=== PATIENT | male | born 1955 | race Caucasian/White ===

== ENCOUNTER 2019-03-30 13:16 | Emergency (ER) | payer OTHER ==
[~2019-03-30] VITALS: Ht 188 cm; Wt 90.7 kg
--- NOTE | 2019-03-30 13:20 | NUR ---
[id number], WITNESSED SYNCOPE AT HOME. ABDOMINAL PAIN S/P KIDNEY PROCEDURE LAST WEEK. +HEMATURIA NOTED, TO ER BED 1, HOOKED TO MONITOR, CHANGED TO HOSP GOWN, WARM BLAKET PROVIDED, PATIENT AOx4 , BREATHING EVEN AND UNLABORED. AWAITING MD SCRUGGS.
--- NOTE | 2019-03-30 13:30 | NUR ---
DR MORALES AT BEDSIDE
--- NOTE | 2019-03-30 13:42 | NUR ---
CALLED [facility]
[2019-03-30 13:51] LABS: BASOPHILS # (AUTO) 0.1 /CMM (0.0-0.2); BASOPHILS % (AUTO) 1.1 % (0.0-2.0); EOSINOPHILS % (AUTO) 3.8 % (0.0-6.0); HEMATOCRIT 38 % (39-51); HEMOGLOBIN 13.4 g/dL (13.5-17.5); LYMPHOCYTES # (AUTO) 1.8 /CMM (0.8-4.8); LYMPHOCYTES % (AUTO) 17.8 % (20.0-44.0); MEAN CORPUSCULAR HGB CONC 35 g/dl (31.0-36.0); MEAN CORPUSCULAR VOLUME 94 fL (80-96); MONOCYTES # (AUTO) 0.6 /CMM (0.1-1.30); MONOCYTES % (AUTO) 6.3 % (2.0-12.0); NEUTROPHILS # (AUTO) 7.2 /CMM (1.8-8.9); PLATELET COUNT (AUTO) 239 /CMM (150-450); RED BLOOD CELL COUNT(AUTO) 4.07 MIL/uL (4.5-6.0); WHITE BLOOD COUNT (AUTO) 10.1 K/uL (4.3-11.0)
[2019-03-30 13:57] LABS: CALCIUM, SERUM 8.6 mg/dL (8.5-10.1); CARBON DIOXIDE 25 mmol/L (21-32); CHLORIDE 106 mmol/L (98-107); CREATININE 1.6 mg/dL (0.6-1.3); GLUCOSE 121 mg/dL (74-106); POTASSIUM 4.6 mmol/L (3.5-5.1); SODIUM SERUM 137 mmol/L (136-145); UREA NITROGEN, BLOOD 22 mg/dL (7-18)
[2019-03-30] MEDS ORDERED: IV NS 0.9% 1,000 ML BAG IV ONE (14:00)
[2019-03-30] MEDS ORDERED: ONDANSETRON HCL/PF 4 MG/2 ML VIAL IVP ONE (14:00)
[2019-03-30] MEDS ORDERED: ONDANSETRON HCL/PF 4 MG/2 ML VIAL ONE (14:01)
[2019-03-30 14:09] LABS: ALANINE AMINOTRANSFERASE 43 U/L (12-78); ALBUMIN 3.1 g/dL (3.4-5.0); ALKALINE PHOSPHATASE 57 U/L (46-116); ASPARTATE AMINOTRANSFERASE 16 U/L (15-37); BILIRUBIN,DIRECT 0.1 mg/dL (0.0-0.2); BILIRUBIN,TOTAL 0.7 mg/dL (0.2-1.0); LIPASE 152 U/L (73-393); TOTAL PROTEIN, SERUM 6.7 g/dL (6.4-8.2)
[2019-03-30] MEDS ORDERED: IV NS 0.9% 250 ML IV ONE (14:17)
[2019-03-30] MEDS ORDERED: CT SWABBABLE VALVE TRANS SET 1 EA INFUS.SET MC ONE (14:17)
[2019-03-30] MEDS ORDERED: IOHEXOL-300 100 ML VIAL IV ONE (14:17)
--- NOTE | 2019-03-30 14:17 | NUR ---
WHEELED OUT VIA GURNEY TO CT SCAN
--- NOTE | 2019-03-30 14:35 | NUR ---
CALLED [facility] FOR DR TO AWAITING CALL
--- NOTE | 2019-03-30 14:58 | NUR ---
CALLED [facility]
[2019-03-30] MEDS ORDERED: MORPHINE SULFATE INJ 2 MG/ML DISP.SYRIN IV ONE ×2 (15:00→17:00)
[2019-03-30] MEDS ORDERED: MORPHINE SULFATE INJ 4 MG/ML DISP.SYRIN ONE ×2 (15:02→17:15)
--- NOTE | 2019-03-30 15:03 | NUR ---
DR. JESUS DELUCA SPECIALIST - UROLOGY [phone]
--- NOTE | 2019-03-30 15:19 | NUR ---
DR. CHANDLER CALLED BACK AND NOW WE ARE WAITING GUNNISON IN [facility] TO SPEAK WIT UROLOGIST AND ACCEPT THE PT IN [facility].
[2019-03-30] MEDS ORDERED: IV NS 0.9% 1,000 ML IV ONE (15:30)
--- NOTE | 2019-03-30 16:15 | NUR ---
PT ACCEPTED TO [facility], NUMBER FOR REPORT IS [phone] MANUEL FLORIAN [facility] TRANSPORT WITH DR. CODY [id number]
--- NOTE | 2019-03-30 17:21 | NUR ---
called [facility] to find out of new eta... is 40 mins per [place].
--- NOTE | 2019-03-30 17:29 | NUR ---
REPORT GIVEN TO JAN OF [facility]
--- NOTE | 2019-03-30 17:52 | NUR ---
VERIFIED BLOOD PRODUCT WITH DELFINA AMIN RN, BLOOD PRODUCT INFORMATION MATCHED WITH TAG AND MEDICAL RECOED SHEET
--- NOTE | 2019-03-30 17:54 | NUR ---
PRE BLOOD TRANSFUSION VITAL SIGNS TAKEN AND RECORDED.
--- NOTE | 2019-03-30 18:05 | NUR ---
NO ADVERSE SYMPTOMS FOR 1ST 15 MIN OF BLOOD TRANSFUSION NOTED.
--- NOTE | 2019-03-30 18:35 | NUR ---
PATIENT TOLERATING BLOOD TRANSFUSION WELL. NO ADVERSE REACTION NOTED. VITAL SIGNS STABLE. HOOKED TO PROPERTY MANAGEMENT SPECIALIST AND POX. CLOSE MONITORING DONE. WILL CONTINUE TO MONITOR PATIENT.
--- NOTE | 2019-03-30 18:46 | NUR ---
[facility] WITH DR CODY AND SOLEDAD ZIEGLER PICKED UP PATIENT IN STABLE CONDITION. ONGOING BLOOD TRANSFUSION DURING ROAD MECHANIC. REPORT GIVEN TO AND RN. PATIENT WILL BE BROUGHT TO [facility] DEPT
[2019-03-30 19:00] VITALS: BP 124/70
--- NOTE | 2019-03-30 19:00 | NUR ---
BLOOD TRANSFUSION DONE. NO ADVERSE EFFECT NOTED. PATIENT ON GEOPHYSICAL E LOGGER OF AMBULANCE WITH STABLE VITAL SIGNS. MD AND RN AT BEDSIDE.
== END 2019-03-30 19:04 | disposition short-term general hospital (02) ==
LOC: ER 13:16
DX: K66.1 Hemoperitoneum (principal); R55 Syncope and collapse; R10.84 Generalized abdominal pain; I44.0 Atrioventricular block, first degree
CPT/HCPCS: 36415; 71045; 74177; 80048; 80076; 83690; 84484; 85025; 85730; 86850; 86921; 93005; 96361; 96374; 96375; 96376; 99285; J2270 ×2; J2405; J7030 ×2; J7040; J7050; P9016; Q9967